=== PATIENT | male | born 1990 ===

== ENCOUNTER 2025-01-17 07:42 | Outpatient (OUT) | payer OTHER, SELFPAY ==
--- NOTE | 2025-01-17 | XR_ITS ---
The [address] [address] Patient Name: KAVON LUCIO MRN: [id number] date: 1990 Sex: M Assigned Patient Location: Current Patient Location: Accession/Order Number: [id number] Exam Date: 01/17/2025 13:45 Report Date: 01/17/2025 13:46 At the request of: FADI GILBERT MD Procedure: XR knee LT 4V LEFT KNEE - 4 views CLINICAL HISTORY: m25.562 Acute pain of left knee COMPARISON: None FINDINGS: No acute bony process. No joint effusion. No significant degenerative change. XR/XR knee LT 4V IMPRESSION: NO ACUTE BONY PROCESS. Impression dictated by: Kumar Esteban Jr., DJaneOJane 01/17/2025 1:46 PM Dictation Location: [place] [address] Electronically authenticated by: [id number] Y Date: 01/17/2025 13:46
== END 2025-01-17 07:43 | disposition home or self-care (01) ==
LOC: EC 07:42
PROVIDERS: Visit Provider Orthopaedic Surgery
DX: M25.562 Pain in left knee (principal)
CPT/HCPCS: 73564